=== PATIENT | male | born 1960 | race Caucasian/White ===

== ENCOUNTER 2024-02-13 11:32 | Emergency (ER) | payer BC ==
[~2024-02-13] VITALS: Ht 180.3 cm; Wt 81.6 kg
== END 2024-02-13 14:11 | disposition home or self-care (01) ==
LOC: ER 11:33
DX: S00.93XA Contusion of unspecified part of head, initial encounter (principal); W18.39XA Other fall on same level, initial encounter; Y93.89 Activity, other specified; Y92.012 Bathroom of single-family (private) house as the place of occurrence of the external cause; Y99.9 Unspecified external cause status